=== PATIENT | female | born 1950 | race African-American/Black ===

== ENCOUNTER 2016-09-28 12:41 | Inpatient (IN) | payer BC ==
--- NOTE | ~2016-09-28 | HP ---
History And Physical [place] [id number] [facility] [place]. [address] NAME: ALEXEI GALDAMEZ : 46 STATUS : ADM Princess PAT#: [id number] AGE: 66 ADM/REG DATE : 09/28/16 MR#: [id number] REPORT SERV DATE: 09/28/16 DICTATED BY: JUS VILLARREAL DATE: 09/28/16 REPORT STATUS : Draft TRANSCRIBED BY: MODDonna DATE: 09/28/16 DATE OF ADMISSION: 09/28/2016 ATTENDING PHYSICIAN: Dr. Loev. REASON FOR ADMISSION: Hypertension uncontrolled. HISTORY OF PRESENT ILLNESS: This is a 66-year-old black female who lives on [facility]. She sees Jenn Bragg as her primary care physician. She did not like taking her lisinopril and stopped it because it gives her headache for about 4 hours every time she takes it. She stopped it. She did say she had a dose of clonidine left this morning but now she is out of the clonidine. She went to [place] for pain management doctor and her blood pressure was high. She asked for more pain medicine for headache but was refused and sent her to the emergency room here because her blood pressure was elevated. On arrival, the patient's blood pressure was 210/139. She wants to have the blood pressure controlled and tolerate the medication. She had been on clonidine and feels like it does good when she is discharged from the hospital. Previously she was given clonidine 0.[address] Wakefield had seen her in the emergency room and put her on a Cardene drip after she failed to respond to hydralazine IV, therefore she is on a Cardene drip at this time and going to the intermediate intensive care unit because of the Cardene while she was started on oral medication. Bed is not yet available and I am asked to see the patient for this dilemma. She apparently has been out of some of her medication and wants more of the pain medication. PAST MEDICAL HISTORY: She is hoping for gastric bypass to help her with her morbid obesity. She has hoped to have knee joint replacement by Dr. Handy for her degenerative joint disease of her knees. HOME MEDICATIONS: Include the followin. Clonidine 0.2 p.o. three times a day. 2. Cyclobenzaprine 10 mg p.o. three times a day p.r.n. muscle spasm. 3. Furosemide 20 mg p.o. daily. 4. Hydrocodone 10/325 one p.o. q.4 q.i.d. p.r.n. pain. 5. Potassium chloride 20 mEq p.o. daily. ALLERGIES: INCLUDE ASPIRIN AND PENICILLIN. HER LAST HOSPITALIZATION WAS 06/2015. SHE HAS BEEN HOSPITALIZED WITH UNCONTROLLED HYPERTENSION, OSTEOARTHRITIS, AND CHRONIC PAIN IN THE PAST AND AN OVERACTIVE BLADDER. HER PRIMARY COMPLAINT TODAY IS SHE HAS URGENCY AND FREQUENCY OF URINATION. PAST SURGICAL HISTORY: She had abdominal hysterectomy and x3. SOCIAL HISTORY: She is . Lives with her in [place]. She denies any alcohol History And Physical [address] [address] NAME: ALEXEI GALDAMEZ : 46 STATUS : ADM Pirncess PAT#: [id number] AGE: 66 ADM/REG DATE : 09/28/16 MR#: [id number] REPORT SERV DATE: 09/28/16 DICTATED BY: JUS VILLARREAL. DATE: 09/28/16 REPORT STATUS : Draft TRANSCRIBED BY: PORFIRIO DATE: 09/28/16 or tobacco. FAMILY HISTORY: Mother with high blood pressure. Father with lung cancer. Siblings history, she does not know. REVIEW OF SYSTEMS: She has had a headache, frontal or retro-orbital. NECK: No stiffness. No fever, chills, or night sweats. No nausea, vomiting, diarrhea, melena, hematemesis, fits, seizures, convulsions, unilateral weakness. She does have some swelling of the lower extremities. She has had no fever, chills, or night sweats. No unilateral weakness. No fits, seizures, or convulsions. The remainder of the review of systems is negative. PHYSICAL EXAMINATION: GENERAL: Morbidly obese, white female, in no acute distress. VITAL SIGNS: Blood pressure was 205/125, down from 210/139. HEENT: EOMI. Sclerae clear. Conjunctivae pink. NECK: No bruit without any JVD. CHEST: Clear to A and P. HEART: Regular S1, S2 without murmur, rub, or click. BREASTS: Grossly without mass. ABDOMEN: Grossly obese. Nontender. Bowel sounds positive. No HSM. EXTREMITIES: Have some morbidly obese legs with fat folds down over the knees. Her panniculus extends down to her mid shins bilaterally. I was unable to lift it to examine under this. She has chronic edema of her lower extremities. No distal pulses are palpable. 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 No DTRs are elicitable. She is symmetric and equal neurologically. She can walk with the aid of the nurses to the bathroom. LYMPHATICS: There is no adenopathy in the neck noted. LABORATORY DATA: Her urinalysis shows 0 white cells, 0 red cells per high-powered field, specific gravity 1.006, pH 7, otherwise negative dip. Her white count is 7.8, hemoglobin 12.8, hematocrit 36.8, and platelet count is 236,000. INR 1.1. Her portable chest x-ray shows no airspace disease. Mild cardiomegaly. BNP was 70.8 and the sodium 140, potassium 4.2, creatinine 0.8, BUN 13, and glucose 134. Liver tests are normal. Troponin less than 0.08. EKG shows normal sinus rhythm, possible left atrial abnormality. ASSESSMENT: 1. Hypertension uncontrolled. The patient has likely been out of her clonidine. She admits to being out at this morning and to stopping her lisinopril which caused her to have a headache. I am going to try starting her on Norvasc which she has been on before at 5 mg. Add metoprolol because of her heart rate being up to 128 right now and home adding ramipril 5 mg p.o. daily. I am starting a Catapres-TTS patch as was recommended by Dr. Wakefield when initially started talking. Dr. Wakefield recommended observation in the IMICU on the Cardene drip that she started. I recommend stopping the Cardene drip after dosing the oral medication to see if she can go to observation and blood pressure be monitored over time. I believe noncompliance is a large History And Physical [address] [place] [facility] [place]. [address] NAME: ALEXEI GALDAMEZ : 46 STATUS : ADM Princess PAT#: [id number] AGE: 66 ADM/REG DATE : 09/28/16 MR#: [id number] REPORT SERV DATE: 05/23/17 DICTATED BY: JUS VILLARREAL DATE: 09/28/16 REPORT STATUS : Draft TRANSCRIBED BY: PORFIRIO DATE: 09/28/16 contributor to this. 2. Morbid obesity. She says Dr. Davidson is going to do a gastric bypass on her when she loses 17 more pounds which she sees as the panacea for correcting many of her problems. 3. Degenerative joint disease of knees. Dr. Handy is planning to do surgery and replace some. 4. Chronic pain. Goes to a clinic in [place]. PLAN: Restart home medications. Adjust the dosage form. I am going to change the ramipril to 5 mg a day and discontinue the lisinopril and see how she does with these. We will continue her home medications with some adjustment as above with Catapres TTS #3 patch. Continue the furosemide and the potassium and add the ramipril 5 mg a day to see if this caused the headache. URSULA/PORFIRIO Jus Villarreal M.D. / [id number] CC: MD JENN Marin
--- NOTE | ~2016-09-28 | DS ---
Discharge Summary [facility] [address] [place]. [address] NAME: ALEXEI GALDAMEZ : 46 STATUS : DIS IN PAT#: [id number] AGE: 66 ADM/REG DATE : 09/28/16 MR#: [id number] REPORT SERV DATE: 10/03/16 DICTATED BY: HIGINIO LAN DATE: 10/02/16 REPORT STATUS : Draft TRANSCRIBED BY: MODL DATE: 10/02/16 ADMISSION DATE: 09/28/2016 DISCHARGE DATE: 10/02/2016 DISCHARGE DIAGNOSES: 1. Hypertensive emergency. 2. Acute encephalopathy when the patient's blood pressure was acutely decreased. 3. Morbid obesity. 4. Degenerative disk disease and chronic pain. 5. Constipation. CONSULTS: None. PROCEDURES: None. HOSPITAL COURSE: This is a 66-year-old lady who was admitted to the hospital with hypertensive emergency. For details, please refer to H and P by Dr. Quentin Vann. In summary, the patient was initially admitted under observation. Over the first day of the hospital stay, the patient's blood pressure was difficult to control and her systolic blood pressures were regularly above 220. The patient was actually transferred to [facility] to have her blood pressure better controlled with a Cardene drip. Although the goal blood pressure control was systolic of 180 in the first 24 hours, the patient's blood pressure did normalize on Cardene drip, and with that, the patient actually developed acute metabolic encephalopathy. Her encephalopathy did improve with titrating down Cardene drip to allow for her systolic blood pressures to run greater than 160. The patient was started on multiple antihypertensive regimen, and by the third day of the hospital stay, the patient's blood pressure became better controlled with systolic blood pressures in the 140s and diastolic in the 90s. The patient was monitored for another full day at the patient's family's request, to make sure her blood pressure is better controlled prior to discharge. The patient is now being discharged to home in stable condition, to be followed closely as an outpatient. Of note, the patient was worked up for secondary hypertension with renal Doppler ultrasound which was essentially negative, and I have also ordered 24-hour catecholamine and metanephrines which is still pending at this time. DISCHARGE DISPOSITION: Home. DISCHARGE MEDICATIONS: 1. Norvasc 10 mg p.o. daily. 2. Hydrochlorothiazide 25 mg p.o. daily. 3. Lopressor 50 mg p.o. b.i.d. 4. Altace 10 mg p.o. daily. 5. Hydralazine 25 mg p.o. q.8 hours and these are all new medications. 6. Hydrocodone 5/325 was discontinued and the patient's pain medication was escalated up to Percocet 5/325 one tablet p.o. q.6 hours p.r.n., otherwise no medication changes. FOLLOWUP: Please follow up with PCP in the next one to two weeks. Discharge Summary [place] [id number] [facility] [place]. [address] NAME: ALEXEI GALDAMEZ : 46 STATUS : DIS IN PAT#: [id number] AGE: 66 ADM/REG DATE : 09/28/16 MR#: [id number] REPORT SERV DATE: 10/03/16 DICTATED BY: HIGINIO LAN DATE: 10/02/16 REPORT STATUS : Draft TRANSCRIBED BY: PORFIRIO DATE: 10/02/16 DICTATED BY: Higinio Lan MD [facility] [place]/PORFIRIO Higinio Lan MD / [id number] CC: MD SHIV Marin MINDI
[~2016-09-28 12:41] MED LIST: ASAB PO; CAT1 PO; CAT2 PO; CATPATCH1 TOP; COREG25 PO; COREG6 PO; DITRO5 PO; DSS PO; IMDUR30 PO; KLOR-CON 1010 MEQ PO; L20 PO; METHOC750B PO; NORV10 PO; NORV5 PO; PERCOCET1 TA4 PO; ROXICODONE30 MG PO; VASOTEC5 PO; Z-PAK PO; ZESTRIL20 MG PO
[2016-09-28 13:34] LABS: BASOPHILS 0.3 %; BASOPHILS ABSOLUTE 0.02 10/3/uL (0.0-0.16); EOSINOPHILS 2.2 %; EOSINOPHILS ABSOLUTE 0.17 10/3/uL (0.0-0.53); HEMATOCRIT 36.8 % (36.0-48.0); HEMOGLOBIN 12.8 g/dL (12.0-16.0); IMMATURE GRANULOCYTES 0.4 %; IMMATURE GRANULOCYTES ABSOLUTE 0.03 10/3/uL (0.0-0.11); LYMPHOCYTES 17.9 %; LYMPHOCYTES ABSOLUTE 1.39 10/3/uL (0.67-4.30); MEAN CORPUS HGB CONC 34.8 g/dL (32.0-36.0); MEAN CORPUSCULAR HEMOGLOB 31.8 pg (26.0-34.0); MONOCYTES 8.9 %; MONOCYTES ABSOLUTE 0.69 10/3/uL (0.21-1.20); NEUTROPHILS 70.3 %; NEUTROPHILS ABSOLUTE 5.48 10/3/uL (2.02-8.40); PLATELET COUNT 236 10/3/uL (150-400); RBC DISTRIBUTION WIDTH 12.8 % (12.0-16.0); RED CELL COUNT 4.02 10/6/uL (4.0-5.6); WHITE BLOOD CELLS 7.8 10/3/uL (4.5-10.5)
[2016-09-28 13:35] LABS: MANUAL DIFF NO %; MEAN CORPUSCULAR VOLUME 91.5 fL (80-100)
[2016-09-28 13:52] LABS: ALBUMIN 3.5 G/DL (3.5-5.0); ALKALINE PHOSPHATASE 88 U/L (45-117); BUN (BLOOD UREA NITROGEN) 13 MG/DL (6-23); CALCIUM, SERUM 9.3 MG/DL (8.5-10.4); CHEST PAIN PROFILE TAT 0 Hrs 22 Mins; CHLORIDE, SERUM 107 MMOL/L (96-112); CO2 (CARBON DIOXIDE) 28 MMOL/L (24-34); CREATININE 0.81 MG/DL (0.55-1.02); GFR AFRICAN AMERICAN 86 ML/MIN (>=60); GFR NON AFRICAN AMERICAN 75 ML/MIN (>=60); SGPT(ALT) 12 U/L (5-65); SODIUM, SERUM 140 MMOL/L (135-148); TOTAL BILIRUBIN 0.5 MG/DL (0-1.2); TOTAL PROTEIN 7.9 G/DL (6.0-8.5); TROPONIN I <0.02 NG/ML (<0.05)
[2016-09-28 13:53] LABS: DIRECT BILIRUBIN < 0.1 MG/DL (0.0-0.4); GLUCOSE, SERUM 134 MG/DL (60-99); INDIRECT BILIRUBIN(NOT ORDER) 0.4 MG/DL (0.1-0.9)
[2016-09-28 13:54] LABS: POTASSIUM, SERUM 4.2 MMOL/L (3.5-5.3); SGOT(AST) 32 U/L (5-40)
[2016-09-28 14:57] LABS: PARTIAL THROMBO TIME 35.5 SEC (22.5-37.2)
[2016-09-28 14:58] LABS: INTERNATIONAL NORMAL RATI 1.1 UNITS (-); PROTIME (NOT ORD) 13.8 SEC (12.0-14.5)
[2016-09-28] MEDS ORDERED: CAT2 PO (15:33)
[2016-09-28] MEDS ORDERED: KLOR-CON M2020 MEQ PO (15:34)
[2016-09-28] MEDS ORDERED: L20 PO (15:35)
[2016-09-28] MEDS ORDERED: NORCO1 TAB PO (15:35)
[2016-09-28] MEDS ORDERED: FLEX PO ×2 (15:36)
[2016-09-28 15:39] LABS: WBC (NOT ORDERED) (RFLEX) 0 (0-5)
[2016-09-28 15:44] LABS: ASCORBIC ACID (UR NOT ORDER) NEG (NEG); BILIRUBIN, URINE NEGATIVE (NEG); KETONE, URINE NEGATIVE (NEG); LEUKOCYTE ESTERASE(NOT OR NEG (NEG); NITRITE (URINE) NEG (NEG)
[2016-09-29 05:24] LABS: BUN (BLOOD UREA NITROGEN) 12 MG/DL (6-23); CHLORIDE, SERUM 100 MMOL/L (96-112); CO2 (CARBON DIOXIDE) 29 MMOL/L (24-34); CREATININE 0.82 MG/DL (0.55-1.02); GFR AFRICAN AMERICAN 85 ML/MIN (>=60); GFR NON AFRICAN AMERICAN 74 ML/MIN (>=60); POTASSIUM, SERUM 3.6 MMOL/L (3.5-5.3); SODIUM, SERUM 138 MMOL/L (135-148)
[2016-09-29 05:31] LABS: CALCIUM, SERUM 10.4 MG/DL (8.5-10.4); GLUCOSE, SERUM 162 MG/DL (60-99)
[2016-09-29 05:55] LABS: PHOSPHORUS, SERUM 3.1 MG/DL (2.5-4.5)
[2016-09-30 06:49] LABS: BASOPHILS 0.1 %; BASOPHILS ABSOLUTE 0.01 10/3/uL (0.0-0.16); EOSINOPHILS 0.3 %; EOSINOPHILS ABSOLUTE 0.04 10/3/uL (0.0-0.53); HEMATOCRIT 42.6 % (36.0-48.0); HEMOGLOBIN 14.7 g/dL (12.0-16.0); IMMATURE GRANULOCYTES 0.5 %; IMMATURE GRANULOCYTES ABSOLUTE 0.06 10/3/uL (0.0-0.11); LYMPHOCYTES ABSOLUTE 1.66 10/3/uL (0.67-4.30); MANUAL DIFF NO %; MEAN CORPUS HGB CONC 34.5 g/dL (32.0-36.0); MEAN CORPUSCULAR HEMOGLOB 31.7 pg (26.0-34.0); MEAN CORPUSCULAR VOLUME 91.8 fL (80-100); MEAN PLATELET VOLUME 10.3 fL (9.2-13.0); MONOCYTES 10.2 %; NEUTROPHILS 75.9 %; NEUTROPHILS ABSOLUTE 9.73 10/3/uL (2.02-8.40); PLATELET COUNT 221 10/3/uL (150-400); RBC DISTRIBUTION WIDTH 12.8 % (12.0-16.0); RED CELL COUNT 4.64 10/6/uL (4.0-5.6); WHITE BLOOD CELLS 12.8 10/3/uL (4.5-10.5)
[2016-09-30 07:06] LABS: BUN (BLOOD UREA NITROGEN) 13 MG/DL (6-23); CALCIUM, SERUM 10.2 MG/DL (8.5-10.4); CHLORIDE, SERUM 97 MMOL/L (96-112); CO2 (CARBON DIOXIDE) 27 MMOL/L (24-34); CREATININE 0.81 MG/DL (0.55-1.02); GFR AFRICAN AMERICAN 86 ML/MIN (>=60); GFR NON AFRICAN AMERICAN 75 ML/MIN (>=60); GLUCOSE, SERUM 174 MG/DL (60-99); POTASSIUM, SERUM 3.2 MMOL/L (3.5-5.3); SODIUM, SERUM 133 MMOL/L (135-148); ULTRASENSITIVE TSH 0.689 MCIU/ML (0.358-3.740)
[2016-10-02] MEDS ORDERED: NORV10 PO (09:44)
[2016-10-02] MEDS ORDERED: HYDROCHLOROT25 MG PO (09:44)
[2016-10-02] MEDS ORDERED: LOP50 PO (09:45)
[2016-10-02] MEDS ORDERED: ALTACE10 MG PO (09:47)
[2016-10-02] MEDS ORDERED: APRES25 PO (09:47)
[2016-10-02] MEDS ORDERED: PCET PO (09:50)
[2016-10-11 13:59] LABS: TIME 24 h (()); VOLUME 1300 mL (())
[2016-10-11 20:25] LABS: DOPAMINE [CALC] 139 ug/24h (88-420); EPINEPHRINE [CALC] <7 ug/24h (2-24); NOREPINEPHRINE [CALC] 83 ug/24h (12-86); TOTAL FREE CATECHOLAMINES 90 ug/24h (14-110)
[2016-10-14 17:01] LABS: NORMETANEPHRINE [CALC] 0.697 mg/24h (0.088-0.444)
== END 2016-10-02 13:34 | disposition home or self-care (01) | DRG 304 ==
LOC: ER 12:41 → 6NO 17:20 → SSU2 09-29 09:34 → IMCU 09-29 19:30 → 6NO 09-30 13:37
PROVIDERS: Emergency Medicine; Internal Medicine
DX: I16.1 Hypertensive emergency (principal); G93.41 Metabolic encephalopathy; Z68.44 Body mass index [BMI] 60.0-69.9, adult; E66.01 Morbid (severe) obesity due to excess calories; M17.0 Bilateral primary osteoarthritis of knee; Z91.14 Patient's other noncompliance with medication regimen; G89.29 Other chronic pain; K59.00 Constipation, unspecified; Z90.710 Acquired absence of both cervix and uterus
CPT/HCPCS: 70450; 71010; 80048; 80076; 81001; 82384; 83735; 83835; 83880; 84100; 84443; 84484; 85025; 85610; 85730; 87641; 93005; 93975; 96365; 96366; 96375; 99285; A9270-GY; J0360; J1170; J2405; J2550